=== PATIENT | female | born 1975 | race Caucasian/White ===

== ENCOUNTER 2022-11-03 11:14 | Emergency (ER) | payer OTHER, SELFPAY ==
--- NOTE | ~2022-11-03 | CT_ITS ---
EXAMINATION: CT HEAD WITHOUT CONTRAST CLINICAL INFORMATION: Dizziness COMPARISON: 11/15/2011 TECHNIQUE: Contiguous axial imaging was performed from the skull base to vertex without intravenous administration of contrast. This CT examination was performed using dose optimization techniques as appropriate, variously including the following: *Automated exposure control *Adjustment of mA and/or kV according to patient size (this includes techniques or standardized protocols for targeted exams where dose is matched to indication/reason for exam; i.e. extremities or head) *Use of iterative reconstruction technique DLP: 596 mGy-cm FINDINGS: The brain parenchyma has normal attenuation. The ruff-white matter differentiation is well preserved. No evidence of an acute major vascular territory infarction. No intracranial hemorrhage, extra-axial fluid collection, focal mass effect or midline shift. The ventricles have normal size and configuration; no hydrocephalus. The brainstem and cerebellum have a normal appearance. The cerebellar tonsils are in normal position. The calvarium is intact. The visualized paranasal sinuses are well aerated. There is opacification of some of the left mastoid air cells without mastoid erosion. The middle ear cavities are well aerated. The cochlea, semicircular canals and internal auditory canals are unremarkable. The orbits and globes are normal. The temporomandibular joints are normal. CT/CT head/brain wo IV con IMPRESSION: No intracranial mass, hemorrhage or infarction. No acute intracranial pathology.
[2022-11-03 11:20] VITALS: BP 118/84; PULSE 73; RESP 18; TEMP 36.7; O2SAT 100; BMI 25.2
--- NOTE | 2022-11-03 11:21 | ED.DIZZY ---
HPI - Dizziness General Chief Complaint: Dizziness <Silvia HintonFINN ocasio - Last Filed: 11/03/22 11:24> Stated Complaint: dizziness <Silvia CordovaFINN - Last Filed: 11/03/22 11:24> Time Seen by Provider: 11/03/22 13:05 <Silvia Cordova CNP - Last Filed: 11/03/22 11:24> Source: patient <JESENIA Judd - Last Filed: 11/03/22 14:01> Mode of arrival: ambulatory <JESENIA Judd - Last Filed: 11/03/22 14:01> Limitations: no limitations <JESENIA Judd Last Filed: 11/03/22 14:01> History of Present Illness HPI Narrative: 46-year-old female with no medical history presents to the ER for evaluation of muffling sensation in her right ear for the last 2 weeks along with new onset of positional dizziness for the last 1 week. She states the sensation and hearing in her right ear sounds like a static TV. She is able to hear but it is decreased. She denies any ringing in the ear. She feels a fullness on the right side of her head. She denies any nasal congestion, runny nose, fever, chills or URI symptoms. She developed dizziness last Sunday, worse with position changes and turning her head. She went to the urgent care center today where they treated her for vertigo but urged her to come to the ER for evaluation and get a head CT scan. She denies any numbness, weakness, difficulty speaking or swallowing. No rashes. <JESENIA Judd - Last Filed: 11/03/22 14:01> MD elicited complaint: dizziness <JESENIA Judd Last Filed: 11/03/22 14:01> Onset (ago): week(s) <JESENIA Judd Last Filed: 11/03/22 14:01> Timing: gradual onset <JESENIA Judd Last Filed: 11/03/22 14:01> Severity: moderate <JESENIA Judd Last Filed: 11/03/22 14:01> Description: room spinning and lightheadedness <JESENIA Judd - Last Filed: 11/03/22 14:01> Context: change in body position <JESENIA Judd - Last Filed: 11/03/22 14:01> History of similar symptoms: No <JESENIA Judd - Last Filed: 11/03/22 14:01> Exacerbating factors: movement/ambulation and change in body position <JESENIA Judd - Last Filed: 11/03/22 14:01> Relieving factors: remaining still and lying down <JESENIA Judd - Last Filed: 11/03/22 14:01> Associated symptoms: ear discomfort, change in hearing and ear fullness <JESENIA Judd - Last Filed: 11/03/22 14:01> Related Data Home Medications: Previous Rx's Medication Instructions Recorded amoxicillin 875 mg-potassium 1 tab PO BID #20 tabs 11/03/22 clavulanate 125 mg tablet <Silvia Cordova CNP - Last Filed: 11/03/22 11:24> Allergies/Adverse Reactions: Allergies Allergy/AdvReac Type Severity Reaction Status Date / Time prednisone Allergy Dizziness Verified 11/03/22 11:27 <Silvia Cordova CNP - Last Filed: 11/03/22 11:24> Review of Systems Review of Systems: Yes all other systems are reviewed and are negative <JESENIA Judd - Last Filed: 11/03/22 14:01> [facility] Social History Social History: Social History Advance Directives: No Advance Directives Information Provided: Yes <Silvia Cordova CNP - Last Filed: 11/03/22 11:24> Physical Exam Vital Signs: Vital Signs: Last Vital Signs Temp 98.0 F 11/03/22 11:20 Pulse 77 11/03/22 13:48 Resp 18 11/03/22 13:48 BP 117/80 11/03/22 13:48 Pulse Ox 100 11/03/22 13:48 O2 Del Method 11/03/22 13:48 BMI result Body Mass Index 25.2 <Silvia Cordova CNP - Last Filed: 11/03/22 11:24> Vital Signs: Last Vital Signs Temp 98.0 F 11/03/22 11:20 Pulse 77 11/03/22 13:48 Resp 18 11/03/22 13:48 BP 117/80 11/03/22 13:48 Pulse Ox 100 11/03/22 13:48 O2 Del Method 11/03/22 13:48 BMI result Body Mass Index 25.2 <JESNEIA Judd - Last Filed: 11/03/22 14:01> Vital Signs: Last Vital Signs Temp 98.0 F 11/03/22 11:20 Pulse 77 11/03/22 13:48 Resp 18 11/03/22 13:48 BP 117/80 11/03/22 13:48 Pulse Ox 100 11/03/22 13:48 O2 Del Method 11/03/22 13:48 BMI result Body Mass Index 25.2 <Michele Lafleur MD - Last Filed: 11/03/22 16:16> Appearance: Alert. Oriented X3. No acute distress. Eyes: Pupils equal, round and reactive to light. ENT: Pharynx normal. Right EAC is clear with a small effusion behind the tympanic membrane with erythema at the base only. Normal visualization of the landmarks without bulging or erythema. Neck: Normal inspection. Neck supple. No lymphadenopathy. CVS: Normal heart rate and rhythm. Pulses normal. Respiratory: No respiratory distress. Breath sounds normal. Skin: Skin warm and dry. Normal skin color. Normal skin turgor. No rashes. Extremities: No lower extremity edema. Neuro: Oriented X 3. No motor deficit. No sensory deficit.CN II-XII intact. Steady gait. Normal speech and cognition. Normal heel to olson and finger to nose bilaterally. <JESENIA Judd - Last Filed: 11/03/22 14:01> Course Course Course Narrative: This is an RME: Additional HPI, ROS, PE not included below will be deferred to primary provider. Patient is a 46 year old female who presents to the emergency department with referral from Urgent Care, was advised that she needs a head CT to rule out intracranial abnormalities as a cause for dizziness. States 2 weeks with muffled sound to ear, worse on the right, dizziness described as the room spinning. Denies headache, visions changes. Has never had problems with dizziness in the past. They sent a prescription for ondansetron and meclizine to her pharmacy already. No injury. Plan: labs, head CT <Silvia Cordova CNP - Last Filed: 11/03/22 11:24> Reevaluation(s) Reevaluation #1: CT head is normal. lab workup and EKG normal. Troponin is negative. Will continue treatment for vertigo. She will follow-up with primary care doctor. Stable for discharge home. <JESENIA Judd - Last Filed: 11/03/22 14:01> Medical Decision Making Differential Diagnosis Differential Diagnoses: The differential diagnosis associated with the presentation includes <JESENIA Judd - Last Filed: 11/03/22 14:01> Benign vertigo, ear infection, effusion, mastoiditis, sinus infection, less likely stroke or optic neuritis <JESENIA Judd - Last Filed: 11/03/22 14:01> Lab Data MDM Lab Attestation statement: I reviewed the patient's lab results. <JESENIA Judd - Last Filed: 11/03/22 14:01> unremarkable <JESENIA Judd - Last Filed: 11/03/22 14:01> Result Diagrams: 11/03/22 12:07 11/03/22 12:07 <Silvia Cordova CNP - Last Filed: 11/03/22 11:24> Labs: Lab Results 11/03/22 11/03/22 11/03/22 Range/Units 12:07 12:07 12:07 WBC 6.7 (4.8-10.8) X10*3/uL RBC 4.16 L (4.20-5.50) X10*6/uL Hgb 12.6 (12.0-16.0) g/dl Hct 37.8 (37.0-47.0) % MCV 90.9 (80.0-98.0) fL MCH 30.3 (27.0-33.0) pg MCHC 33.3 (31.0-35.0) g/dl RDW 12.6 (11.0-16.0) % Plt Count 356 (160-400) X10*3/uL MPV 9.2 L (9.4-12.3) fL Immature Gran % (Auto) 0.2 (0.0-0.4) % Neut % (Auto) 61.3 (45-73) % Lymph % (Auto) 23.6 (20-40) % [place] % (Auto) 12.9 H (2-11) % Eos % (Auto) 0.9 (0-4) % Baso % (Auto) 1.1 (0-2) % Lymph # (Auto) 1.6 (1.2-4.9) X10*3/uL [place] # (Auto) 0.9 (0.1-1.2) X10*3/uL Eos # (Auto) 0.1 (0.0-0.4) X10*3/uL Baso # (Auto) 0.1 (0.0-0.2) X10*3/uL Abs Immat Gran (auto) 0.01 (0.00-0.03) X10*3/uL Absolute Neuts (auto) 4.1 (2.0-8.3) x10*3/uL Absolute Nucleated RBC 0.000 (0.0-0.012) X10*3/uL Nucleated RBC % (auto) 0.0 (0.0-0.2) /100WBC Sodium 138 (135-145) mmol/L Potassium 3.6 (3.3-5.1) mmol/L Chloride 108 (96-108) mmol/L Carbon Dioxide 25 (22-29) mmol/L Anion Gap 9 L (12-20) BUN 9 (9-16) mg/dL Creatinine 0.70 (0.5-1.4) mg/dL Estim Creat Clear Calc 93.2 Estimated GFR > 60 Random Glucose 104 (60-115) mg/dL Calcium 9.0 (8.4-10.2) mg/dL Total Bilirubin 0.3 (0.0-1.0) mg/dL AST 19 (5-31) U/L ALT 16 (0-31) U/L Alkaline Phosphatase 58 (39-117) U/L Troponin I High Sens < 3.5 (<3.5-17.0) ng/L Total Protein 7.2 (6.5-8.0) g/dL Albumin 4.4 (3.5-5.0) g/dL Beta HCG, Quant < 2 mIU/mL <Silvia Cordova CNP - Last Filed: 11/03/22 11:24> Lab Results 11/03/22 11/03/22 11/03/22 Range/Units 12:07 12:07 12:07 WBC 6.7 (4.8-10.8) X10*3/uL RBC 4.16 L (4.20-5.50) X10*6/uL Hgb 12.6 (12.0-16.0) g/dl Hct 37.8 (37.0-47.0) % MCV 90.9 (80.0-98.0) fL MCH 30.3 (27.0-33.0) pg MCHC 33.3 (31.0-35.0) g/dl RDW 12.6 (11.0-16.0) % Plt Count 356 (160-400) X10*3/uL MPV 9.2 L (9.4-12.3) fL Immature Gran % (Auto) 0.2 (0.0-0.4) % Neut % (Auto) 61.3 (45-73) % Lymph % (Auto) 23.6 (20-40) % [place] % (Auto) 12.9 H (2-11) % Eos % (Auto) 0.9 (0-4) % Baso % (Auto) 1.1 (0-2) % Lymph # (Auto) 1.6 (1.2-4.9) X10*3/uL [place] # (Auto) 0.9 (0.1-1.2) X10*3/uL Eos # (Auto) 0.1 (0.0-0.4) X10*3/uL Baso # (Auto) 0.1 (0.0-0.2) X10*3/uL Abs Immat Gran (auto) 0.01 (0.00-0.03) X10*3/uL Absolute Neuts (auto) 4.1 (2.0-8.3) x10*3/uL Absolute Nucleated RBC 0.000 (0.0-0.012) X10*3/uL Nucleated RBC % (auto) 0.0 (0.0-0.2) /100WBC Sodium 138 (135-145) mmol/L Potassium 3.6 (3.3-5.1) mmol/L Chloride 108 (96-108) mmol/L Carbon Dioxide 25 (22-29) mmol/L Anion Gap 9 L (12-20) BUN 9 (9-16) mg/dL Creatinine 0.70 (0.5-1.4) mg/dL Estim Creat Clear Calc 93.2 Estimated GFR > 60 Random Glucose 104 (60-115) mg/dL Calcium 9.0 (8.4-10.2) mg/dL Total Bilirubin 0.3 (0.0-1.0) mg/dL AST 19 (5-31) U/L ALT 16 (0-31) U/L Alkaline Phosphatase 58 (39-117) U/L Troponin I High Sens < 3.5 (<3.5-17.0) ng/L Total Protein 7.2 (6.5-8.0) g/dL Albumin 4.4 (3.5-5.0) g/dL Beta HCG, Quant < 2 mIU/mL <JESENIA Judd - Last Filed: 11/03/22 14:01> Lab Results 11/03/22 11/03/22 11/03/22 Range/Units 12:07 12:07 12:07 WBC 6.7 (4.8-10.8) X10*3/uL RBC 4.16 L (4.20-5.50) X10*6/uL Hgb 12.6 (12.0-16.0) g/dl Hct 37.8 (37.0-47.0) % MCV 90.9 (80.0-98.0) fL MCH 30.3 (27.0-33.0) pg MCHC 33.3 (31.0-35.0) g/dl RDW 12.6 (11.0-16.0) % Plt Count 356 (160-400) X10*3/uL MPV 9.2 L (9.4-12.3) fL Immature Gran % (Auto) 0.2 (0.0-0.4) % Neut % (Auto) 61.3 (45-73) % Lymph % (Auto) 23.6 (20-40) % [place] % (Auto) 12.9 H (2-11) % Eos % (Auto) 0.9 (0-4) % Baso % (Auto) 1.1 (0-2) % Lymph # (Auto) 1.6 (1.2-4.9) X10*3/uL [place] # (Auto) 0.9 (0.1-1.2) X10*3/uL Eos # (Auto) 0.1 (0.0-0.4) X10*3/uL Baso # (Auto) 0.1 (0.0-0.2) X10*3/uL Abs Immat Gran (auto) 0.01 (0.00-0.03) X10*3/uL Absolute Neuts (auto) 4.1 (2.0-8.3) x10*3/uL Absolute Nucleated RBC 0.000 (0.0-0.012) X10*3/uL Nucleated RBC % (auto) 0.0 (0.0-0.2) /100WBC Sodium 138 (135-145) mmol/L Potassium 3.6 (3.3-5.1) mmol/L Chloride 108 (96-108) mmol/L Carbon Dioxide 25 (22-29) mmol/L Anion Gap 9 L (12-20) BUN 9 (9-16) mg/dL Creatinine 0.70 (0.5-1.4) mg/dL Estim Creat Clear Calc 93.2 Estimated GFR > 60 Random Glucose 104 (60-115) mg/dL Calcium 9.0 (8.4-10.2) mg/dL Total Bilirubin 0.3 (0.0-1.0) mg/dL AST 19 (5-31) U/L ALT 16 (0-31) U/L Alkaline Phosphatase 58 (39-117) U/L Troponin I High Sens < 3.5 (<3.5-17.0) ng/L Total Protein 7.2 (6.5-8.0) g/dL Albumin 4.4 (3.5-5.0) g/dL Beta HCG, Quant < 2 mIU/mL <Michele Lafleur MD - Last Filed: 11/03/22 16:16> Independent Interpretation I performed an independent interpretation of an: EKG <JESENIA Judd - Last Filed: 11/03/22 14:01> Interpretation: EKG with normal sinus rhythm, ventricular rate 69 beats per minute, normal OK interval, normal QTC, no significant change from prior about 10 years ago. <JESENIA Judd - Last Filed: 11/03/22 14:01> Radiology Impression Discussion of test interpretation with radiology: I have reviewed the radiologist's reading. <JESENIA Judd - Last Filed: 11/03/22 14:01> External Record Review External record reviewed: Outpatient record <JESENIA Judd - Last Filed: 11/03/22 14:01> Prescription Management I considered prescription management with: Antibiotic <JESENIA Judd - Last Filed: 11/03/22 14:01> Will give trial of Augmentin for possible evolving ear infection with new right-sided effusion seen. <JESENIA Judd - Last Filed: 11/03/22 14:01> Attestation Attending Attestation: I personally reviewed PA/resident/nurse practitioner note. I reviewed a all results and treatment plan. I agree with the assessment and plan. I agree with disposition <Michele Lafleur MD - Last Filed: 11/03/22 16:16> Critical Care Time Critical Care Time Critical Care Time: No <JESENIA Judd - Last Filed: 11/03/22 14:01> Discharge Plan Discharge Clinical Impression: Benign paroxysmal positional vertigo <Silvia Cordova CNP - Last Filed: 11/03/22 11:24> Patient Disposition: Home, Self-Care <Silvia Cordova CNP - Last Filed: 11/03/22 11:24> Instructions: Vertigo (ED), Dizziness (ED) <Silvia Cordova CNP - Last Filed: 11/03/22 11:24> Additional Instructions: Your lab workup today was unremarkable. Your head CT was normal. Recommend taking the prescribed medications from urgent care as directed. You can also try the prescribed antibiotic given the effusion and inflammation in your right ear. <Silvia Cordova CNP - Last Filed: 11/03/22 11:24> Prescriptions: New amoxicillin-pot clavulanate 875-125 mg tablet 1 tab PO BID Qty: 20 0RF <Silvia Cordova CNP - Last Filed: 11/03/22 11:24> Referrals: Abel Ignacio [Physician] - ( Decreased hearing in the right ear, effusion, vertigo) <Silvia Cordova CNP - Last Filed: 11/03/22 11:24> Interventions: ED Discharge Assessment Last Done: 11/03/22 13:55 <Silvia Cordova CNP - Last Filed: 11/03/22 11:24> Discharge Date/Time: 11/03/22 13:58 <Silvia Cordova CNP - Last Filed: 11/03/22 11:24>
--- NOTE | 2022-11-03 11:24 | ECG_ITS ---
Test Reason : dizziness Blood Pressure : / mmHG Vent. Rate : 069 BPM Atrial Rate : 069 BPM P-R Int : 136 ms QRS Dur : 082 ms QT Int : 384 ms P-R-T Axes : 033 075 036 degrees QTc Int : 411 ms Normal sinus rhythm Normal ECG When compared with ECG of 15-NOV-2011 10:07, No significant change was found Referred By: Silvia Cordova Electronically Signed By:SHIREEN LEUNG MD
--- NOTE | 2022-11-03 11:57 | PC.NURSE ---
46 y/o F pw dizziness, states she was seen at and given scripts for meclizine and zofran however was told to present to ED for Head CT. pt is aox3, calm and cooperative, VSS
[2022-11-03 12:14] LABS: MANUAL DIFF FLAG NO
[2022-11-03 12:20] LABS: Basophils Absolute Auto 0.1 X10*3/uL (0.0-0.2); Basophils Percent Auto 1.1 % (0-2); Eosinophils Absolute Auto 0.1 X10*3/uL (0.0-0.4); Eosinophils Percent Auto 0.9 % (0-4); Hematocrit 37.8 % (37.0-47.0); Hemoglobin 12.6 g/dl (12.0-16.0); Imm Gran Abs Auto 0.01 X10*3/uL (0.00-0.03); Imm Gran Pct Auto 0.2 % (0.0-0.4); Lymphocytes Absolute Auto 1.6 X10*3/uL (1.2-4.9); Lymphocytes Percent Auto 23.6 % (20-40); Mean Corpuscular HGB Conc 33.3 g/dl (31.0-35.0); Mean Corpuscular Hemoglobin 30.3 pg (27.0-33.0); Mean Corpuscular Volume 90.9 fL (80.0-98.0); Mean Platelet Volume 9.2 fL (9.4-12.3); Monocytes Absolute Auto 0.9 X10*3/uL (0.1-1.2); Monocytes Percent Auto 12.9 % (2-11); Neutrophils Absolute Auto 4.1 x10*3/uL (2.0-8.3); Neutrophils Percent Auto 61.3 % (45-73); Platelet Count 356 X10*3/uL (160-400); Red Blood Count 4.16 X10*6/uL (4.20-5.50); Red Cell Distribution Width 12.6 % (11.0-16.0); White Blood Count 6.7 X10*3/uL (4.8-10.8)
[2022-11-03 12:51] LABS: Alanine Aminotransferase 16 U/L (0-31); Albumin Level 4.4 g/dL (3.5-5.0); Alkaline Phosphatase 58 U/L (39-117); Anion Gap 9 (12-20); Aspartate Amino Transferase 19 U/L (5-31); Bilirubin Total 0.3 mg/dL (0.0-1.0); Blood Urea Nitrogen 9 mg/dL (9-16); Carbon Dioxide 25 mmol/L (22-29); Chloride 108 mmol/L (96-108); Creatinine Clr Calc Pharmacy 93.2; Estimated Glomerular Filt Rate > 60; Glucose Random 104 mg/dL (60-115); HCG Quantitative < 2 mIU/mL; Potassium 3.6 mmol/L (3.3-5.1); Sodium 138 mmol/L (135-145); Total Protein 7.2 g/dL (6.5-8.0)
[2022-11-03 12:52] LABS: Troponin-I High Sensitivity < 3.5 ng/L (<3.5-17.0)
[2022-11-03 13:45] VITALS: BP 118/77; PULSE 71
[2022-11-03 13:46] VITALS: BP 117/80; PULSE 75
[2022-11-03 13:47] VITALS: BP 124/80; PULSE 76
[2022-11-03 13:48] VITALS: BP 117/80; PULSE 77; RESP 18; O2SAT 100
== END 2022-11-03 13:58 | disposition home or self-care (01) ==
PROVIDERS: Nurse Practitioner Family; Emergency Provider Emergency Medicine; PCP Internal Medicine
DX: R42 Dizziness and giddiness (principal); H93.291 Other abnormal auditory perceptions, right ear; H81.11 Benign paroxysmal vertigo, right ear
CPT/HCPCS: 36415; 70450; 80053; 84484; 84702; 85025; 93005; 99284